=== PATIENT | male | born 1965 | race Caucasian/White ===

== ENCOUNTER 2023-11-26 16:41 | Emergency (ER) | payer BC ==
[2023-11-26] MEDS: Take Home: Cephalexin 500 MG Cap, 6 Cap Pack PO ONE (17:33)
== END 2023-11-26 17:42 | disposition home or self-care (01) ==
LOC: VM.ED 16:41
DX: L03.011 Cellulitis of right finger (principal)
CPT/HCPCS: 99283; A9270